=== PATIENT | male | born 1975 | race Caucasian/White ===

== ENCOUNTER 2017-03-13 13:31 | Observation (INO) | payer BC, MEDICAID ==
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
[2017-03-13] MEDS ORDERED: 0.9 % SODIUM CHLORIDE 1,000 ML BAG IV ONE ×2 (13:48→15:12)
[2017-03-13] MEDS ORDERED: ONDANSETRON HCL IV 4 MG/2 ML VIAL IV ONE (13:48)
[2017-03-13 14:09] LABS: BASO % 0.6 % (0-6); EOS % 1.5 % (0-6); GRAN % 66.5 % (47-80); HEMATOCRIT 49.1 % (42.0-52.0); HEMOGLOBIN 17.8 gm/dl (14.0-18.0); LYMPH % 20.5 % (16-45); MEAN CELL VOLUME 85.7 fl (81-97); MEAN CORPUSCULAR HGB CONC 36.3 g/dl (32-36); MEAN PLATELET VOLUME 9.4 fl (7.4-10.4); MONO % 10.9 % (0-9); PLATELET COUNT 305 K/uL (130-400); RED BLOOD COUNT 5.73 M/uL (4.40-5.70); RED CELL DISTRIBUTION WIDTH 12.6 % (11.5-14.5); WHITE BLOOD COUNT W/O DIFF 10.3 K/uL (4.2-12.2)
[2017-03-13 14:21] LABS: BLOOD UREA NITROGEN 11 mg/dL (6-20); CREATININE 0.5 mg/dL (0.7-1.2); EST GLOMERULAR FILTRATION RATE > 60 mL/min; TOTAL PROTEIN 7.4 g/dL (6.6-8.7)
[2017-03-13 14:22] LABS: GLUCOSE,RANDOM 191 mg/dL (74-109)
[2017-03-13 14:25] LABS: ALBUMIN 4.4 g/dL (4.0-5.0); ALKALINE PHOSPHATASE 94 U/L (40-129); ALT/SGPT 148 U/L (<41); AST/SGOT 445 U/L (10.0-50.0); BILIRUBIN,DIRECT 0.3 mg/dL (0-0.3); LIPASE 43 U/L (13-60)
[2017-03-13 14:57] LABS: URINE APPEARANCE CLEAR; URINE BILIRUBIN NEGATIVE (NEGATIVE); URINE BLOOD NEGATIVE (NEGATIVE); URINE COLOR YELLOW; URINE GLUCOSE (UA) NEGATIVE (NEGATIVE); URINE KETONE NEGATIVE (NEGATIVE); URINE LEUKOCYTE ESTERASE NEGATIVE (NEGATIVE); URINE NITRITE NEGATIVE (NEGATIVE); URINE PROTEIN NEGATIVE (NEGATIVE); URINE UROBILINOGEN 0.2 E.U./dL (0.20 - 1.00)
[2017-03-13 14:59] LABS: AMPHETAMINE SCREEN URINE NOT DETECTED; BARBITURATE SCREEN URINE NOT DETECTED; BENZODIAZEPINE SCREEN URINE NOT DETECTED; COCAINE SCREEN URINE NOT DETECTED; METHADONE SCREEN URINE NOT DETECTED; METHAMPHETAMINE SCREEN NOT DETECTED; OPIATE SCREEN URINE NOT DETECTED; OXYCODONE SCREEN URINE NOT DETECTED; PHENCYCLIDINE SCREEN URINE NOT DETECTED; PROPOXYPHENE SCREEN URINE NOT DETECTED; THC SCREEN URINE DETECTED; TRICYCLIC ANTIDEPRESSANT SCRN NOT DETECTED
[2017-03-13] MEDS ORDERED: NICOTINE14 MG/24 HOUR PATCH TD ONE (15:01)
[2017-03-13] MEDS ORDERED: LORAZEPAM 2 MG/ML VIAL IV ONE ×2 (15:01→18:16)
[2017-03-13 15:53] LABS: BILIRUBIN,TOTAL 1.2 mg/dL (0.2-1.0)
[2017-03-13 15:54] LABS: TOTAL PROTEIN 7.5 g/dL (6.6-8.7)
[2017-03-13 15:59] LABS: ALBUMIN 4.5 g/dL (4.0-5.0); BILIRUBIN,DIRECT 0.3 mg/dL (0-0.3)
[2017-03-13 16:18] LABS: ACETAMINOPHEN < 5.0 ug/mL (10.0-30.0); SALICYLATE < 0.3 mg/dL (2.8-20)
[2017-03-13] MEDS: MVI, ADULT NO.4 WITH VIT K 10 ML, THIAMINE HCL IV 100 MG in 0.9 % SODIUM CHLORIDE 1000M... IV SCH ×6 (18:54→23:29)
[2017-03-13] MEDS ORDERED: FLU VAC QS 2017-18 (INPT, 6MO+) 60MCG/0.5ML IM ONE (20:17)
[2017-03-13] MEDS ORDERED: LORAZEPAM 2 MG/ML VIAL IV PRN (20:18)
[2017-03-13] MEDS: 0.9 % SODIUM CHLORIDE 1000ML 1,000 ML IV PRN (20:36)
[2017-03-13] MEDS: PANTOPRAZOLE SODIUM IV 40 MG VIAL IV SCH (20:58)
[2017-03-14] MEDS: LORAZEPAM 2 MG/ML VIAL IV PRN ×4 (00:08→15:53)
[2017-03-14] MEDS: 0.9 % SODIUM CHLORIDE 1000ML 1,000 ML IV PRN (04:14)
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
[2017-03-14 07:13] LABS: BASO % 0.6 % (0-6); EOS % 3.7 % (0-6); GRAN % 60.4 % (47-80); HEMATOCRIT 47.1 % (42.0-52.0); HEMOGLOBIN 16.2 gm/dl (14.0-18.0); LYMPH % 24.7 % (16-45); MEAN CELL VOLUME 88.9 fl (81-97); MEAN CORPUSCULAR HEMOGLOBIN 30.6 pg (27-33); MEAN CORPUSCULAR HGB CONC 34.4 g/dl (32-36); MEAN PLATELET VOLUME 9.7 fl (7.4-10.4); MONO % 10.6 % (0-9); PLATELET COUNT 240 K/uL (130-400); RED CELL DISTRIBUTION WIDTH 12.7 % (11.5-14.5); WHITE BLOOD COUNT W/O DIFF 9.3 K/uL (4.2-12.2)
--- NOTE | 2017-03-14 07:25 | CT SCAN REPORT ---
EXAM: CT OF THE ABDOMEN AND PELVIS WITHOUT CONTRAST HISTORY: DIFFUSE ABDOMINAL PAIN FOR TWO DAYS. NAUSEA, VOMITING AND DIARRHEA. TECHNIQUE: Noncontrast CT of the abdomen and pelvis was obtained. FINDINGS: There is minor dependent atelectasis in each lung base. The lung bases are otherwise clear. No pleural or pericardial effusion. The heart is not enlarged. There is diffuse decreased density of the liver relative to the spleen consistent with steatosis with a small area of sparing adjacent to the gallbladder fossa. Additionally, there are a couple small foci of relative normal opacity within the liver, one in the high left liver lobe measuring 8 mm and one in the inferior right liver lobe measuring 5 mm. These are nonspecific , but may also represent foci of fatty infiltration sparing. The spleen, pancreas, adrenal glands, and kidneys are normal in appearance. The gallbladder is unremarkable. No biliary ductal dilatation. No intraabdominal nor retroperitoneal lymphadenopathy. Several small periaortic lymph nodes are present, the largest of which measures 8.5 mm in diameter. These are within the limits of normal in size and do not appear significantly changed since a 06/23/13 CT pelvis examination. No new pelvic mass, lymphadenopathy or free pelvic fluid is seen. No intrinsic urinary bladder abnormality. No gross bowel dilatation nor bowel wall thickening. The appendix is visualized and normal in appearance. Bilateral spondylolysis of L5 redemonstrated associated with Grade 1 anterolisthesis of L5 on S1. There is a chronic nondisplaced spinal laminar fracture, obliquely oriented involving the L2 vertebra. IMPRESSION: 1. NO CONVINCING CT EVIDENCE OF AN ACUTE INTRAABDOMINAL NOR INTRAPELVIC PROCESS. 2. NORMAL APPENDIX. 3. DIFFUSE HEPATIC STEATOSIS WITH A SMALL AREA OF SPARING ADJACENT TO THE GALLBLADDER FOSSA. A COUPLE ADDITIONAL RELATIVELY HYPERDENSE FOCI WITHIN THE LIVER ARE LESS THAN 1 CM. THESE ARE NONSPECIFIC, BUT MAY ALSO REPRESENT SMALL FOCI OF SPARING FROM FATTY INFILTRATION. 4. BILATERAL SPONDYLOLYSIS OF L5 REDEMONSTRATED ASSOCIATED WITH GRADE 1 ANTEROLISTHESIS OF L5 ON S1. 5. OLD UNUNITED NONDISPLACED SPINAL LAMINAR FRACTURE OF L2. JOB NUMBER: [id number] [facility]
[2017-03-14 07:56] LABS: ALB/GLOB RATIO 1.4 (1.1-1.8); ALBUMIN 3.5 g/dL (4.0-5.0); ALKALINE PHOSPHATASE 82 U/L (40-129); ALT/SGPT 137 U/L (<41); AST/SGOT 336 U/L (10.0-50.0); BLOOD UREA NITROGEN 11 mg/dL (6-20); CREATININE 0.8 mg/dL (0.7-1.2); EST GLOMERULAR FILTRATION RATE > 60 mL/min; GLUCOSE,RANDOM 110 mg/dL (74-109)
[2017-03-14] MEDS: PANTOPRAZOLE SODIUM IV 40 MG VIAL IV SCH (09:41)
[2017-03-14] MEDS: NICOTINE 21 MG/24 HOUR PATCH TD PRN ×2 (09:47→15:51)
[2017-03-14] MEDS: ONDANSETRON HCL IV 4 MG/2 ML VIAL IVP PRN ×2 (09:58→16:11)
[2017-03-14] MEDS ORDERED: IBUPROFEN 400 MG TABLET PO PRN (10:11)
[2017-03-14] MEDS ORDERED: CLONAZEPAM 1MG TABLET PO PRN (10:15)
[2017-03-14] MEDS: CHLORDIAZEPOXIDE 25 MG CAPSULE PO SCH ×2 (10:33→15:50)
[2017-03-14 14:38] LABS: ALB/GLOB RATIO 1.4 (1.1-1.8); ALBUMIN 3.6 g/dL (4.0-5.0); ALKALINE PHOSPHATASE 100 U/L (40-129); ALT/SGPT 125 U/L (<41); AST/SGOT 268 U/L (10.0-50.0); BLOOD UREA NITROGEN 10 mg/dL (6-20); CREATININE 0.8 mg/dL (0.7-1.2); EST GLOMERULAR FILTRATION RATE > 60 mL/min; GLUCOSE,RANDOM 136 mg/dL (74-109); TOTAL PROTEIN 6.1 g/dL (6.6-8.7)
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
[2017-03-14 16:46] LABS: HEPATITIS B SURFACE ANTIBODY 14.54 mIU/mL; HEPATITIS B SURFACE ANTIGEN Nonreactive (Nonreactive); HEPATITIS C VIRUS ANTIBODY Nonreactive (Nonreactive)
== END 2017-03-14 19:00 ==
LOC: ER 13:31 → MEDSURG 19:40
PROVIDERS: ADMIT Internal Medicine; ATTEND Internal Medicine
DX: F32.3 Major depressive disorder, single episode, severe with psychotic features (principal); F11.14 Opioid abuse with opioid-induced mood disorder; F10.14 Alcohol abuse with alcohol-induced mood disorder; R45.851 Suicidal ideations; F11.159 Opioid abuse with opioid-induced psychotic disorder, unspecified; R74.0 Nonspecific elevation of levels of transaminase and lactic acid dehydrogenase [LDH]
CPT/HCPCS: 99285 ×2; 96376; 96365; 96366; 96375; 96361; 83690; 86803; 85025 ×2; 80076; 86704; 80048; 80053; 86706; 81003; 87340; 80305; 74176; 93005; 93010; 90686; G0378 ×2; G0480 ×3; J2405 ×2; J2060 ×2; 80320; 80329; 99220; C9113; J3411; J7030

== ENCOUNTER 2017-09-08 19:22 | Emergency (ER) | payer BC ==
[2017-09-08] MEDS ORDERED: ONDANSETRON HCL IV 4 MG/2 ML VIAL IVP ONE (19:40)
[2017-09-08] MEDS ORDERED: MORPHINE SULFATE 10 MG/ML VIAL IVP ONE (19:40)
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
[2017-09-08 19:57] LABS: BASO % 0.6 % (0-6); GRAN % 66.3 % (47-80); HEMATOCRIT 43.1 % (42.0-52.0); HEMOGLOBIN 14.4 gm/dl (14.0-18.0); LYMPH % 22.6 % (16-45); MEAN CELL VOLUME 91.1 fl (81-97); MEAN CORPUSCULAR HEMOGLOBIN 30.4 pg (27-33); MEAN CORPUSCULAR HGB CONC 33.4 g/dl (32-36); MEAN PLATELET VOLUME 9.4 fl (7.4-10.4); MONO % 8.5 % (0-9); PLATELET COUNT 308 K/uL (130-400); RED BLOOD COUNT 4.73 M/uL (4.40-5.70); WHITE BLOOD COUNT W/O DIFF 14.3 K/uL (4.2-12.2)
[2017-09-08 20:08] LABS: BLOOD UREA NITROGEN 15 mg/dL (6-20); CREATININE 0.6 mg/dL (0.7-1.2); EST GLOMERULAR FILTRATION RATE > 60 mL/min
[2017-09-08 20:09] LABS: TOTAL PROTEIN 7.3 g/dL (6.6-8.7)
[2017-09-08 20:11] LABS: GLUCOSE,RANDOM 111 mg/dL (74-109)
[2017-09-08 20:13] LABS: ALB/GLOB RATIO 1.1 (1.1-1.8); ALBUMIN 3.9 g/dL (4.0-5.0); ALKALINE PHOSPHATASE 86 U/L (40-129); ALT/SGPT 15 U/L (<41); AST/SGOT 29 U/L (10.0-50.0)
[2017-09-08] MEDS ORDERED: HYDROMORPHONE HCL 2 MG/ML VIAL IVP ONE ×2 (20:42→22:17)
--- NOTE | 2017-09-11 07:44 | CT ANGIOGRAM REPORT ---
EXAM: CT ANGIOGRAM OF THE LEFT KNEE WITHOUT CONTRAST AND WITH THREE DIMENSIONAL POST PROCESSING HISTORY: FELL OFF LADDER. LEFT KNEE PAIN. TECHNIQUE: Standard CT angiography of the left knee was performed in the axial plane with intravenous contrast. 100 ml of Omnipaque 300 were administered. Additional multiplanar maximum intensity projection and 3D volume rendered reformatted images were performed on an independent workstation under concurrent supervision. Comparison: None. Encounter: Initial. FINDINGS: The popliteal artery and proximal calf arteries are well opacified and appear normal in caliber. There is no evidence for vascular injury or pseudoaneurysm. There is no significant stenosis. There is a comminuted fracture of the patella. The fracture has an inverted Y configuration with no significant displacement. There is an associated joint effusion with associated lipohemarthrosis. The remaining osseous structures appear intact. There are moderate arthritic changes within the medial compartment of the knee. IMPRESSION: 1. COMMINUTED NONDISPLACED PATELLAR FRACTURE WITH ASSOCIATED LIPOHEMARTHROSIS. 2. MODERATE ARTHRITIC CHANGES AT THE MEDIAL COMPARTMENT OF THE KNEE. 3. NO EVIDENCE FOR VASCULAR INJURY. JOB NUMBER: [id number] [facility]
== END 2017-09-08 23:11 | disposition home or self-care (01) ==
LOC: ER 19:22
DX: S82.045A Nondisplaced comminuted fracture of left patella, initial encounter for closed fracture (principal); F17.210 Nicotine dependence, cigarettes, uncomplicated
CPT/HCPCS: 29530; 99284 ×2; 96376; 96374; 96375; 85025; 80053; 73706; G0480; Q9967; J2405; J1170; J2270; 80320

== ENCOUNTER 2018-09-27 22:35 | Emergency (ER) | payer MEDICAID ==
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
== END 2018-09-27 23:45 | disposition home or self-care (01) ==
LOC: ER 22:35
DX: F19.10 Other psychoactive substance abuse, uncomplicated (principal); R44.0 Auditory hallucinations; F22 Delusional disorders; F31.9 Bipolar disorder, unspecified; F17.210 Nicotine dependence, cigarettes, uncomplicated
CPT/HCPCS: 99283

== ENCOUNTER 2018-11-16 05:25 | Emergency (ER) | payer MEDICAID ==
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
[2018-11-16] MEDS ORDERED: VANCOMYCIN 1GM/200ML PREMIX 1 GM/200 ML PIGGYBACK IVPB SCH (06:00)
[2018-11-16] MEDS ORDERED: MORPHINE SULFATE 5 MG/ML VIAL IVP ONE (06:03)
[2018-11-16] MEDS ORDERED: ONDANSETRON HCL IV 4 MG/2 ML VIAL IVP ONE (06:03)
[2018-11-16 06:09] LABS: ABSOLUTE NEUTROPHIL COUNT 7.12; BASO % 0.1 % (0-6); EOS % 0.6 % (0-6); GRAN % 70.7 % (47-80); HEMATOCRIT 42.7 % (42.0-52.0); HEMOGLOBIN 14.8 gm/dl (14.0-18.0); LYMPH % 15.6 % (16-45); MEAN CORPUSCULAR HEMOGLOBIN 30.5 pg (27-33); MEAN CORPUSCULAR HGB CONC 34.7 g/dl (32-36); MEAN PLATELET VOLUME 9.2 fl (7.4-10.4); PLATELET COUNT 293 K/uL (130-400); RED BLOOD COUNT 4.85 M/uL (4.40-5.70); RED CELL DISTRIBUTION WIDTH 13.1 % (11.5-14.5); WHITE BLOOD COUNT W/O DIFF 10.1 K/uL (4.2-12.2)
[2018-11-16 06:23] LABS: BLOOD UREA NITROGEN 21 mg/dL (6-20); CREATININE 0.8 mg/dL (0.7-1.2); EST GLOMERULAR FILTRATION RATE > 60 mL/min
[2018-11-16 06:26] LABS: GLUCOSE,RANDOM 145 mg/dL (74-109)
[2018-11-16 06:29] LABS: C-REACTIVE PROTEIN 3.53 mg/dL (<0.5)
[2018-11-16 06:50] LABS: ERYTHROCYTE SEDIMENTATION RATE 12 mm/hr (0-15)
[2018-11-16] MEDS ORDERED: ACETAMINOPHEN 1,000 MG/100 ML BTL IVPB ONE (07:26)
== END 2018-11-16 09:04 | disposition short-term general hospital (02) ==
LOC: ER 05:25
DX: M65.142 Other infective (teno)synovitis, left hand (principal); F17.210 Nicotine dependence, cigarettes, uncomplicated
CPT/HCPCS: 80048; 85025; 85651; 86140; 96365; 96375; 99285; J2405; J3370